=== PATIENT | male | born 1965 | race Caucasian/White ===

== ENCOUNTER → 2017-04-25 | Outpatient (CLI) | payer BC ==
[~2017-04-25] MED LIST: AZIT500T PO; BUDE6HFA IH; CEFD300C3 PO; CEPH500C PO; HYDR-34 PO; HYDR-3583 PO; LOSA100T7 PO; NAPR-243 PO; OLME20TA5; OSLT75C PO
--- NOTE | 2017-04-25 11:09 | Diagnostic Imaging Report ---
INDICATION: Hypertension, positive TB skin test. EXAMINATION: PA and lateral chest. FINDINGS: The heart size and pulmonary vascularity are normal. The lungs are clear. There are no effusions or pneumothoraces. IMPRESSION: Negative chest. There is no radiographic evidence for tuberculosis. Dictated by: Dictated on workstation # [id number]
== END ==
LOC: RAD 10:11
PROVIDERS: ATTEND Family Medicine
DX: I10 Essential (primary) hypertension (principal); R76.11 Nonspecific reaction to tuberculin skin test without active tuberculosis
CPT/HCPCS: 71020